=== PATIENT | female | born 1965 | race Caucasian/White ===

== ENCOUNTER 2016-10-05 07:07 | Emergency (ER) | payer OTHER ==
[2016-10-05] MEDS ORDERED: NS 0.9% 1000 ML* 1,000 ML BOLUS ONE (07:34)
[2016-10-05] MEDS ORDERED: Ondansetron INJ* 2 MG/ML VIAL IV ONE (07:35)
--- NOTE | 2016-10-05 07:39 | UC ---
Abdominal Pain Female HPI - HPI Summary HPI Summary: 51 yo female has been ill x 3 days n/v/d vertigo weakness dizziness dysguesia rare cough no aguilar - History of Current Complaint Chief Complaint: UCGeneralIllness Stated Complaint: DIZZINESS, VOMITING Time Seen by Provider: 10/05/16 07:23 Hx Obtained From: Patient Hx Last Menstrual Period: MENOPAUSE Onset/Duration: Gradual Onset, Lasting Days Timing: Constant Severity Initially: Moderate Pain Intensity: 2 Pain Scale Used: 0-10 Numeric Location: Diffuse Radiates: No Character: Colicy, Cramping Aggravating Factor(s): Food Alleviating Factor(s): Nothing Associated Signs and Symptoms: Positive: Dizzy, Decreased Appetite, Nausea, Vomiting, Diarrhea. Negative: Diaphoresis, Fever, Cough, Chest Pain, Back Pain , Constipation, Blood in Stool, Urinary Symptoms, Vaginal Bleeding, Vaginal Discharge Allergies/Adverse Reactions: Allergies Allergy/AdvReac Type Severity Reaction Status Date / Time Buspirone Allergy See Comment Verified 07/14/16 09:46 Loratadine [From Claritin] Allergy See Comment Verified 07/14/16 09:46 Penicillin G Allergy See Comment Verified 07/14/16 09:46 Sulfa Drugs Allergy See Comment Verified 07/14/16 09:46 SSRI medications Allergy GI Upset Uncoded 07/14/16 09:46 Home Medications: Home Medications Diphenhydramine-Acetaminophen [Tylenol Pm Extra Strength 500-25 mg] 10/05/16 [ History] PMH/Surg Hx/FS Hx/Imm Hx Previously Healthy: Yes Endocrine History Of: Denies: Diabetes, Thyroid Disease Cardiovascular History Of: Denies: Cardiac Disorders, Hypertension, Pacemaker/ICD, Deep Vein Thrombosis Respiratory History Of: Reports: Asthma, Bronchitis Denies: COPD, Pneumonia, Pulmonary Embolism GI/ History Of: Denies: Ulcer, Gastrointestinal Bleed, Gall Bladder Disease, Kidney Stones Neurological History Of: Denies: TIA, CVA, Dementia, Seizures, Migraine Psychological History Of: Denies: Anxiety, Depression, Bipolar Disorder, Schizophrenia Cancer History Of: Denies: Lung Cancer Other History Of: Negative For: Anticoagulant Therapy - Surgical History Surgical History: Yes Surgery Procedure, Year, and Place: CHOLECYSTECTOMY 2009. RIGHT KNEE SURGERY. D&C 01/02/2013 - Family History Known Family History: Positive: Hypertension Negative: Cardiac Disease, Diabetes - Social History Alcohol Use: Occasionally Substance Use Type: Marijuana Smoking Status (MU): Current Every Day Smoker Type: Cigarettes Amount Used/How Often: 1/2 ppd Length of Time of Smoking/Using Tobacco: 30 years Have You Smoked in the Last Year: Yes - Immunization History Most Recent Tetanus Shot: "five years ago" Review of Systems Constitutional: Fatigue Skin: Negative Eyes: Negative ENT: Negative Respiratory: Negative Cardiovascular: Negative Gastrointestinal: Vomiting, Diarrhea Genitourinary: Negative Motor: Negative Neurovascular: Negative Musculoskeletal: Negative Neurological: Negative Psychological: Negative All Other Systems Reviewed And Are Negative: Yes Physical Exam Triage Information Reviewed: Yes Appearance: Well-Appearing, No Pain Distress, Well-Nourished Vital Signs: Initial Vital Signs Temp 98.7 F 10/05/16 07:13 Pulse 127 10/05/16 07:13 Resp 18 10/05/16 07:13 BP 141/112 10/05/16 07:13 Pulse Ox 99 10/05/16 07:13 Vital Signs Reviewed: Yes Eyes: Positive: Conjunctiva Clear ENT: Positive: Hearing grossly normal, Pharynx normal, Pharyngeal erythema Neck: Positive: Supple, Nontender Respiratory: Positive: Lungs clear, Normal breath sounds, No respiratory distress, No accessory muscle use Cardiovascular: Positive: RRR, No Murmur Abdomen Description: Positive: Nontender, Soft, Bruit. Negative: CVA Tenderness (R), CVA Tenderness (L) Musculoskeletal: Positive: Strength Intact, ROM Intact Neurological: Positive: Alert Psychological Exam: Normal Skin Exam: Normal Re-Evaluation - Re-Evaluation First Eval Re-Evaluation Time: 08:56 Change: Improved Comment: vital signs better Abd Pain Female Course/Dx - Differential Dx/Diagnosis Provider Diagnoses: dehydration. dizziness of uncertain cause. dysguesia Discharge - Discharge Plan Condition: Stable Disposition: HOME Prescriptions: Ondansetron TAB* [Zofran Tab*] 4 mg PO Q6H PRN #10 tab PRN Reason: Nausea Patient Education Materials: Dizziness (ED) Referrals: Chris Dong MD [Primary Care Provider] - 2 Days Additional Instructions: blood work is pending see your MD first available appt
[2016-10-05 08:38] VITALS: BP 132/87
[2016-10-05 11:16] LABS: Hematocrit 56 % (35-47); Hemoglobin 18.9 g/dl (12.0-16.0); Mean Corpuscular HGB Conc 34 g/dl (31-36); Mean Corpuscular Hemoglobin 30 pg (27-31); Mean Corpuscular Volume 91 fL (80-97); Mean Platelet Volume 9 um3 (7.4-10.4); Red Blood Count 6.23 10^6/ul (4.0-5.4); Red Cell Distribution Width 14 % (10.5-15); White Blood Count 7.6 10^3/ul (3.5-10.8)
[2016-10-05 11:18] LABS: Add Diff/Slide Review? Slide Review Added; Comments Flag Yes
[2016-10-05 11:51] LABS: Albumin 4.3 g/dL (3.2-5.2); BUN/Creatinine Ratio 2.3 (8-20); Calcium 9.8 mg/dL (8.6-10.3); EGFR African American 90.2 (>60); EGFR Non-African American 70.1 (>60); Globulin 2.9 g/dL (2-4); Potassium 4.1 mmol/L (3.5-5.0); Total Bilirubin 0.7 mg/dL (0.2-1.0); Total Protein 7.2 g/dL (6.4-8.9)
== END 2016-10-05 09:07 | disposition home or self-care (01) ==
LOC: UCEAST 07:07
DX: R42 Dizziness and giddiness (principal); E86.0 Dehydration; R43.2 Parageusia; R53.83 Other fatigue; Z88.0 Allergy status to penicillin; Z88.2 Allergy status to sulfonamides; Z88.8 Allergy status to other drugs, medicaments and biological substances; Z90.49 Acquired absence of other specified parts of digestive tract; F12.90 Cannabis use, unspecified, uncomplicated; F17.210 Nicotine dependence, cigarettes, uncomplicated
CPT/HCPCS: 36415; 80053; 81002; 82108; 85025; 96360; 96361; 96374; 99212; G0463; J2405

== ENCOUNTER 2017-03-12 14:58 | Emergency (ER) | payer OTHER ==
--- NOTE | 2017-03-12 17:03 | UC ---
Abdominal Pain Female HPI - HPI Summary HPI Summary: LLQ pain for 1 day--loose stool but no vomiting--- - History of Current Complaint Chief Complaint: UCBackPain Stated Complaint: ABD & BACK PAIN Time Seen by Provider: 03/12/17 16:56 Hx Obtained From: Patient Hx Last Menstrual Period: MENOPAUSE ?: No Onset/Duration: Sudden Onset, Lasting Days - 1, Still Present Timing: Constant Severity Initially: Severe Severity Currently: Severe Pain Intensity: 10 Pain Scale Used: 0-10 Numeric Location: Discrete At: LLQ Radiates: Yes Radiates to: Back Character: Cramping, Sharp, Tearing Aggravating Factor(s): Nothing Alleviating Factor(s): Nothing Associated Signs and Symptoms: Positive: Diarrhea Allergies/Adverse Reactions: Allergies Allergy/AdvReac Type Severity Reaction Status Date / Time Buspirone Allergy See Comment Verified 07/14/16 09:46 Loratadine [From Claritin] Allergy See Comment Verified 07/14/16 09:46 Penicillin G Allergy See Comment Verified 07/14/16 09:46 Sulfa Drugs Allergy See Comment Verified 07/14/16 09:46 SSRI medications Allergy GI Upset Uncoded 07/14/16 09:46 Home Medications: Home Medications B-Complex Vitamins [Vitamin B Complex] 1 tab PO 03/12/17 [History] Calcium 500 mg PO 03/12/17 [History] Lactobacillus [Probiotic] 1 cap PO 03/12/17 [History] Magnesium Oxide (mg Supplement [Mag-200] 200 mg PO 03/12/17 [History] Zinc 30 mg PO 03/12/17 [History] PMH/Surg Hx/FS Hx/Imm Hx Previously Healthy: Yes Other History Of: Negative For: Anticoagulant Therapy - Surgical History Surgical History: Yes Surgery Procedure, Year, and Place: CHOLECYSTECTOMY 2009. RIGHT KNEE SURGERY. D&C 01/02/2013 - Family History Known Family History: Positive: Hypertension Negative: Cardiac Disease, Diabetes - Social History Occupation: Unemployed Lives: Alone Alcohol Use: Occasionally Substance Use Type: Marijuana Smoking Status (MU): Current Every Day Smoker Type: Cigarettes Amount Used/How Often: 1/2 ppd Length of Time of Smoking/Using Tobacco: 30 years Have You Smoked in the Last Year: Yes - Immunization History Most Recent Tetanus Shot: "five years ago" Review of Systems Constitutional: Fatigue Skin: Negative Eyes: Negative ENT: Negative Respiratory: Negative Cardiovascular: Negative Gastrointestinal: Abdominal Pain, Diarrhea Genitourinary: Negative Motor: Negative Neurovascular: Negative Musculoskeletal: Negative Neurological: Negative Psychological: Negative All Other Systems Reviewed And Are Negative: Yes Physical Exam Triage Information Reviewed: Yes Appearance: Ill-Appearing, Pain Distress, Thin Vital Signs: Initial Vital Signs Temp 99.1 F 03/12/17 15:05 Pulse 119 03/12/17 15:05 Resp 18 03/12/17 15:05 BP 99/66 03/12/17 15:05 Pulse Ox 98 03/12/17 15:05 Vital Signs Reviewed: Yes Eye Exam: Normal Eyes: Positive: Conjunctiva Clear ENT Exam: Normal ENT: Positive: Normal ENT inspection, Hearing grossly normal. Negative: Nasal congestion, Nasal drainage, Trismus, Muffled/hoarse voice Dental Exam: Normal Neck exam: Normal Neck: Positive: Supple, Nontender, No Lymphadenopathy Respiratory Exam: Normal Respiratory: Positive: Chest non-tender, Lungs clear, Normal breath sounds, No respiratory distress, No accessory muscle use Cardiovascular Exam: Normal Cardiovascular: Positive: No Murmur, Pulses Normal, Brisk Capillary Refill, Tachycardia Abdominal Exam: Normal Abdomen Description: Positive: No Organomegaly, Soft, Other: - LLQ pain. Negative: CVA Tenderness (R), CVA Tenderness (L) Bowel Sounds: Positive: Present Musculoskeletal Exam: Normal Musculoskeletal: Positive: Strength Intact, ROM Intact, No Edema Neurological Exam: Normal Neurological: Positive: Alert, Muscle Tone Normal Psychological Exam: Normal Skin Exam: Normal Diagnostics - Laboratory Diagnostic Studies Completed/Ordered: Free fluid and air in llq Abd Pain Female Course/Dx - Course Course Of Treatment: NPO, Patient refused ambulance, to [facility] - Differential Dx/Diagnosis Differential Diagnosis: Bowel Obstruction, Diverticulitis, Renal Colic Provider Diagnoses: Abd Pain, Ruptured Diverticuli - Physician Notification/Consults Discussed Care of Patient With: Sparkle Boudreaux Time Discussed With Above Provider: 18:40 Instructed by Provider To: Transfer Discharge - Discharge Plan Condition: Fair Disposition: AGAINST MEDICAL ADVICE
[2017-03-12] MEDS ORDERED: Acetaminophen TAB* 325 MG PO ONE (18:06)
--- NOTE | 2017-03-12 18:20 | RAD ---
INDICATION: Hematuria, abdominal pain. Diarrhea. History of hiatal hernia. Post cholecystectomy. COMPARISON: July 11, 2014 CT urogram. TECHNIQUE: Multidetector CT images were obtained from the lung bases to the ischial tuberosities. Evaluation of the viscera is limited without IV contrast. Multiplanar reformation. REPORT: Unremarkable visualized inferior thorax. Post cholecystectomy. Negative for biliary dilatation. Unremarkable unenhanced liver, pancreas, spleen. Negative for CT abnormality of the upper GI, small bowel, or infra cecal appendix. Moderately severe diverticulosis primarily involving the sigmoid colon with acute inflammation with mild perienteric inflammatory change and small volume of fluid along the LEFT pelvic sidewall. Potential small focus of extra enteric gas although this is not definitive and may be contained within a diverticula. Negative for hernias. Normal adrenal glands. Unremarkable unenhanced kidneys, ureters, urinary bladder, anteverted uterus, and adnexal regions. Negative for lymphadenopathy. Normal diameter abdominal aorta and iliac arteries. Physiologic distention of the IVC. Negative for suspicious osseous lesions. IMPRESSION: 1. Acute sigmoid diverticulitis without evidence for perienteric abscess. Minimal fluid along the LEFT pelvic sidewall. Potential small focus of extra enteric gas although this is not definitive and may be contained within a diverticula. 2. Negative for obstructive uropathy.
[2017-03-12 18:58] VITALS: BP 90/64
== END 2017-03-12 18:57 | disposition left against medical advice (07) ==
LOC: UCEAST 14:58
DX: K57.30 Diverticulosis of large intestine without perforation or abscess without bleeding (principal); K57.20 Diverticulitis of large intestine with perforation and abscess without bleeding; Z72.0 Tobacco use
CPT/HCPCS: 74176; 81003; 99213; A9270-GY; G0463

== ENCOUNTER 2019-01-02 09:09 | Emergency (ER) | payer OTHER ==
--- OUTSIDE RECORDS SUMMARY | 2019-01-02 09:17 | XMS REPORT | Continuity of Care Document ---
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 Urine Screen See Note 43 finding LABORATORY [phone] Urinalysis With 10/07/2014 [facility] Urine Color YELLOW Yellow Microscopic LABORATORY [phone] Urine Clarity CLEAR Clear Urine Glucose - Dipstick NEGATIVE mg/dL Negative Urine Bilirubin - Dipstick NEGATIVE Negative Urine Ketone NEGATIVE mg/dL Negative Urine Specific [place] 1.015 1.010-1.030 Urine Blood SMALL High Negative Urine PH 6.0 Low 6.5-7.5 Urine Protein - Dipstick NEGATIVE mg/dL Negative Urine Urobilinogen - Dipstick 0.2 E.U./dL 0.2-1.0 Urine Nitrite - Dipstick NEGATIVE Negative Urine Leuk Esterase NEGATIVE Negative Urine RBC 0-2 rbc/hpf 0-7 Urine WBC 0-2 wbc/hpf 0-7 Urine Epithelial Cells MODERATE NONESEEN/lpf 44 Urine Amorph Sediment VERY FEW Negative Laboratory test 10/07/2014 [facility] Urine HCG NEGATIVE Negative 45 finding LABORATORY (Qualitative) [phone] CBC W/Automated 10/07/2014 [facility]. White Blood Count 7.8 K/ uL 3.1-10.7 Diff LABORATORY [phone] Red Blood Count 5.06 M/uL 3.90-5.40 Hemoglobin 15.7 gm/dL 11.6-15.8 Hematocrit 45.6 % 36.0-46.1 Mean Cell Volume 90.1 fl 80.9-99.0 Mean Corpuscular HGB 31.0 pg 25.9-32.7 Mean Corpuscular HGB Conc 34.4 g/dL High 30.8-34.3 Platelet Count 367 K/uL High 155-360 Red Cell Distri Width SD 42.2 fl 3-47 Red Cell Distri Width %CV 13.1 % 11.7-14.4 Mean Platelet Volume 9.8 fL 8.9-12.4 Neut% 72.2 % 40.4-72.8 Lymph % 20.5 % 17.0-46.1 [place] % 6.2 % 4.3-13.2 Eo% 1.0 % 0.0-6.6 Bas% 0.1 % 0.0-1.1 Neut# 5.59 K/uL 1.0-7.0 Lymph # 1.59 K/uL Low 1.8-7.0 [place] # 0.48 K/uL 0.3-0.9 Eos # 0.08 K/uL 0.0-0.5 Baso # 0.01 K/uL 0.0-0.1 Laboratory test finding 10/07/2014 [facility]. Lipase 108 U/L 73-393 LABORATORY [phone] Comprehensive Metabolic 10/07/2014 [facility]. Glucose 78 mg/ dL 74-106 Panel LABORATORY [phone] BUN 5 mg/dL Low 7-18 Creatinine 0.7 mg/dL 0.6-1.3 Glom Filtration Rate, Estimate >60 mL/min >60 If >60 mL/min >60 46 BUN/Creat 7.1 ratio Sodium 141 mmol/L 136-145 Potassium 4.3 mmol/L 3.5-5.1 47 Chloride 105 mmol/L 98-107 Carbon Dioxide 27 mmol/L 21-32 Anion Gap 9 mEq/L 8-16 Calcium 9.3 mg/dL 8.5-10.1 Total Protein 8.0 g/dL 6.4-8.2 Albumin 3.9 g/dL 3.4-5.0 Globulin 4.1 g/dL 1.9-4.3 Alb/Glob 1.0 ratio Bilirubin,Total 0.6 mg/dL 0.2-1.0 Sgot/Ast 27 U/L 15-37 SGPT/Alt 22 U/L 12-78 Alkaline Phosphatase 123 U/L High 45-117 Laboratory 08/14/2014 [facility] TSH (Thyroid 1.87 N 0.34-5.60 48, 49 test finding [phone] Stimulating IU/mL Horm) Order 08/07/2014 [facility] wet prep <pending> Stefan vaginal prep <pending> Laboratory test finding 08/07/2014 In House Stefan negative 50 Wet Prep negative Laboratory test finding 08/07/2014 [facility] Genital Culture (SEE NOTE ) 51 [phone] Culture Urine Inhouse 06/05/2014 In House Colonies no growth Urine Micro Inhouse 06/05/2014 In House Ua WBC - Ua RBC 0-1 Ua Casts - Ua Epi many Ua Other - Ua Glucose - Ua Bilirubin - Ua Ketones - Ua Specific [place] 1.005 Ua Blood sm Ua PH 7.0 Ua Protein - Ua Urobilinogen - Ua Nitrite - Ua Leukocytes - 1 void, clear, tahir. Nurse collected a urine spec to test bc pt stated she had back pain and wanted urine checked., however pt did not wait to see provider. SL 2 Normal Range 180 to 914 Indeterminate Range 145 to 180 Deficient Range <145 3 Because ethnic data is not always readily available, this report includes an eGFR for both -Americans and non- Americans. The National Kidney Disease Education Program (NKDEP) does not endorse the use of the MDRD equation for patients that are not between the ages of 18 and 70, are , have extremes of body size, muscle mass, or nutritional status, or are non- or non-. According to the National Kidney Foundation, irrespective of diagnosis, the stage of the disease is based on the level of kidney function: Stage Description GFR(mL/min/1.73 m(2)) 1 Kidney damage with normal or decreased GFR 90 2 Kidney damage with mild decrease in GFR 60-89 3 Moderate decrease in GFR 30-59 4 Severe decrease in GFR 15-29 5 Kidney failure <15 (or dialysis) 4 BACK PAIN 5 URINE, CLEAN CATCH 6 void, clear, yellow 7 SEE RESULT BELOW Name: FREDDY ONEAL : [address]: Fernanda QUINTANILLA Acct: [id number] Unit: [id number] AGE: 52 Location: [facility] Re05/27/17 SEX: F Status: REG REF SPEC: [id number] MARCELINA: 05/27/[address] [facility] [address]: Fernanda QUINTANILLA REQ: [id number] RECD: 05/27/17 STATUS: SOUT _ ORDERED: TP IMAGE ANAL, HPV/Thin Prep COMMENTS: [id number] FINAL DIAGNOSIS Negative for Intraepithelial lesion or Malignancy A. Ectocervical/Endocervical Specimen Adequacy: Satisfactory of evaluation Transformation zone component identified Patient Information: HPV: High risk HPV RNA testing regardless of pap results. Actual Specimen Date: 05/27/17 LMP If Unknown: unknown Spec Date if unknown: 2013 ?: N Post Menopausal?: Y Hysterectomy?: N Previous Abnormal Pap Smears?:N Date Time Test Result Flag (u) Normal Range 05/27/17 1137 HPV RNA Negative Negative The high-risk HPV types detected by the assay include: 16, 18, 31, 33, 35, 39, 45, 51, 52, 56, 58, 59, 66, and 68. Signed (signature on file) ASHIA Morgan(ASCP) 05/31 0937 This Pap test was evaluated with the assistance of the [employer] MediaPrep Test Imaging System. Due to cytologic findings at the light air defense artillery crewmember microscope, comprehensive manual rescreening by a Loss Prevention Guard may be required. The Pap Smear is a screening test designed to aid in the detection of premalignant and malignant conditions of the uterine cervix. It is not a diagnostic procedure and should not be used as the sole means of detecting cervical cancer. Both false- positive and false- negative reports do occur. Depending on your risk status, a Pap smear should be obtained and evaluated every 1-3 years. END OF REPORT * ML=Testing performed at Main Lab DEPARTMENT OF PATHOLOGY, [address] [place] [address] Irving De Santiago M.D. Director [facility]EC[facility] # [id number] RUN DATE: 05/31/17 [facility] LAB LIVE PAGE 1 Patient: FREDDY ONEAL [id number] (Continued) 8 The high-risk HPV types detected by the assay include: 16, 18, 31, 33, 35, 39, 45, 51, 52, 56, 58, 59, 66, and 68. 9 void, clear, tahir 10 SENT BY [facility] LEFT SIDE LOW ABD PAIN GOING TO BACK 11 03/12/172137: NEUT% previously reported as: 78.8 H % Amended result called to: [] 03/12/17 at 213703/12/172137: LYMPH % previously reported as: 13.2 L % Amended result called to: [] 03/12/17 at 213703/12/172137: MONO % previously reported as: 7.6 % Amended result called to: [] 03/12/17 at 213703/12/172137: EO% previously reported as: 0.3 % Amended result called to: [] 03/12/17 at 213703/12/172137: BAS% previously reported as: 0.1 % Amended result called to: [] 03/12/17 at 2138 12 POSSIBLE UROGENITAL CONTAMINATION. 13 URINE, CLEAN CATCH 14 Original specimen hemolyzed, interpret with caution 15 Method: Quidel QuickVue One-Step Immunoassay 16 Note: Persistent reduction for 3 months or more in an eGFR <60 mL/min/1.73 m2 defines CKD. Patients with eGFR values >/=60 mL/min/1.73 m2 may also have CKD if evidence of persistent proteinuria is present. The original MDRD equation for estimated GFR is not valid for patients less than 18 years of age. Additional information may be found at www.kdoqi.org. 17 F41.9 18 Thyroglobulin Antibody measured by [employer] [place] [employer] 19 Performed at: - [facility] [address] [id number] Manager Style: Leonela Lucas MD, Phone: [phone] 20 CAN'T BREATHE 21 URINE, CLEAN CATCH 22 URINE, CLEAN CATCH 23 POSSIBLE UROGENITAL CONTAMINATION. 24 URINE, CLEAN CATCH 25 [id number] 26 Because ethnic data is not always readily available, this report includes an eGFR for both -Americans and non- Americans. The National Kidney Disease Education Program (NKDEP) does not endorse the use of the MDRD equation for patients that are not between the ages of 18 and 70, are , have extremes of body size, muscle mass, or nutritional status, or are non- or non-. According to the National Kidney Foundation, irrespective of diagnosis, the stage of the disease is based on the level of kidney function: Stage Description GFR(mL/min/1.73 m(2)) 1 Kidney damage with normal or decreased GFR 90 2 Kidney damage with mild decrease in GFR 60-89 3 Moderate decrease in GFR 30-59 4 Severe decrease in GFR 15-29 5 Kidney failure <15 (or dialysis) 27 REFERENCE VALUE 0-6 <60 (dialysis patient) ADDITIONAL INFORMATION This test was developed and its performance characteristics determined by [facility] in a manner consistent with CLIA requirements. This test has not been cleared or approved by the U.S. Food and Drug Administration. Test Performed by: [facility] [address] Safety Sealer: Estrada Devlin II, M.D., Ph.D. 28 FASTING 12 HOUR 29 Because ethnic data is not always readily available, this report includes an eGFR for both -Americans and non- Americans. The National Kidney Disease Education Program (NKDEP) does not endorse the use of the MDRD equation for patients that are not between the ages of 18 and 70, are , have extremes of body size, muscle mass, or nutritional status, or are non- or non-. According to the National Kidney Foundation, irrespective of diagnosis, the stage of the disease is based on the level of kidney function: Stage Description GFR(mL/min/1.73 m(2)) 1 Kidney damage with normal or decreased GFR 90 2 Kidney damage with mild decrease in GFR 60-89 3 Moderate decrease in GFR 30-59 4 Severe decrease in GFR 15-29 5 Kidney failure <15 (or dialysis) 30 Desirable <150 Borderline high 150-199 High 200-499 Very High >500 31 Desirable <200 Borderline high 200-239 High >239 32 Low <40 Desirable: 40-60 High: >60 33 Desirable: <100 mg/dL Near Optimal: 100-129 mg/dL Borderline High: 130-159 mg/dL High: 160-189 mg/dL Very High: >189 mg/dL 34 Normal Range 180 to 914 Indeterminate Range 145 to 180 Deficient Range <145 35 FASTING 12 HOUR 36 FASTING 12 HOUR 37 Acute inflammation: >10.00 38 Test Performed by: [facility] - [address] [address] Safety Sealer: Estrada Devlin II, M.D., Ph.D. 39 void, clear, gold 40 [id number]-twyuqi 41 fcze-sfzoe-jdkc tahir 42 SEE RESULT BELOW Name: FREDDY ONEAL : [address]: Ana Cristina Conteh MD Acct: [id number] Unit: [id number] AGE: 49 Location: [facility] Re03/27/15 SEX: F Status: DEP ER SPEC: [id number] MARCELINA: 03/27/15-[address] [facility] [address]: Ana Cristina Conteh MD REQ: [id number] RECD: 03/27/15-123 STATUS: WESLY DEL RIO DR: Chris Dong MD _ SOURCE: URINE SPDESC: ORDERED: Urine Culture Procedure Result Verified Site Urine Culture Final 03/29/15- 1021 ML Organism 1 NORMAL NAZIA [place] Count 25-50,000 (Moderate) CFU/ML * ML - MAIN LAB ([facility]) . END OF REPORT * ML=Testing performed at Main Lab DEPARTMENT OF PATHOLOGY, [facility] [employer] [place], [place] [address] Irving De Santiago M.D. Director [facility] # [id number] 43 10/07/14 LAB.DWM Deleted by [employer] 44 POSSIBLE UROGENITAL CONTAMINATION. 45 FIRST MORNING SPECIMENS GENERALLY CONTAIN THE HIGHEST CONCENTRATION OF HCG AND ARE RECOMMENDED FOR EARLY DETECTION OF . 46 Note: Persistent reduction for 3 months or more in an eGFR <60 mL/min/1.73 m2 defines CKD. Patients with eGFR values >/=60 mL/min/1.73 m2 may also have CKD if evidence of persistent proteinuria is present. The original MDRD equation for estimated GFR is not valid for patients less than 18 years of age. Additional information may be found at www.kdoqi.org. 47 Specimen slightly Hemolyzed, interpret with caution 48 copy result to [facility] [place]) 49 copy result to [facility] [place]) 50 pH 6.0 Whiff test (-) 51 RUN DATE: 08/09/14 [facility] LAB LIVE PAGE 1 RUN TIME: 4414 [facility] [employer] [place], [place] [address] Specimen Inquiry Name: FREDDY ONEAL : [address]: Chris Dong MD Acct: [id number] Unit: [id number] AGE: 49 Location: [facility] Re08/07/14 SEX: F Status: REG REF SPEC: [id number] MARCELINA: 08/07/14-[address]: Chris Dong MD REQ: [id number] RECD: 08/07/14 STATUS: COMP _ SOURCE: VAGINAL SPDESC: ORDERED: Genital Culture QUERIES: Medent Number [id number] Procedure Result Verified Site Genital Culture Final 08/09/14- 1515 ML Organism 1 NORMAL NAZIA Quantity 3+ END OF REPORT * ML=Testing performed at Main Lab DEPARTMENT OF PATHOLOGY, [address] [place] [address] Irving De Santiago M.D. Director [facility] # [id number] Procedures Date Code Description Status 03/12/2018 32816 Omt 7-8 Body Regions Completed 06/16/2017 15902 Destruction Of Skin Lesions Up To 14 Flat Warts/Molluscum Completed Contag Encounters Type Date Location Provider Dx Diagnosis Office Visit 09/21/2018 8:40a Main Office Fernanda Alfaro PA M79.7 Fibromyalgia G89.4 Chronic pain syndrome F41.9 Anxiety disorder, unspecified F17.210 Nicotine dependence, cigarettes, uncomplicated Office Visit 03/12/2018 10:30a Main Office Claude Stewart, M99.05 Segmental and D.O. somatic dysfunction of pelvic region M99.03 Segmental and somatic dysfunction of lumbar region M99.04 Segmental and somatic dysfunction of sacral region M99.01 Segmental and somatic dysfunction of cervical region M99.00 Segmental and somatic dysfunction of head region M99.02 Segmental and somatic dysfunction of thoracic region M99.08 Segmental and somatic dysfunction of rib cage M54.6 Pain in thoracic spine M79.7 Fibromyalgia F41.9 Anxiety disorder, unspecified Office Visit 06/30/2017 4:40p Main Office Fernanda Alfaro, F41.9 Anxiety disorder, PA unspecified G89.4 Chronic pain syndrome L91.8 Other hypertrophic disorders of the skin R11.0 Nausea R53.83 Other fatigue Office Visit 06/16/2017 10:40a Main Office Fernanda Alfaro, L91.8 Other hypertrophic PA disorders of the skin Office Visit 05/27/2017 10:05a Main Office Fernanda Alfaro, Z00.01 Encounter for PA general adult medical exam w abnormal findings M79.7 Fibromyalgia G89.4 Chronic pain syndrome F41.9 Anxiety disorder, unspecified F17.210 Nicotine dependence, cigarettes, uncomplicated K58.0 Irritable bowel syndrome with diarrhea Z12.4 Encounter for screening for malignant neoplasm of cervix Z12.11 Encounter for screening for malignant neoplasm of colon Office Visit 03/29/2017 9:45a Main Office Chris Dong, 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 w/o bleeding M79.7 Fibromyalgia G89.4 Chronic pain syndrome R07.89 Other chest pain R10.814 Left lower quadrant abdominal tenderness Z23 Encounter for immunization G47.00 Insomnia, unspecified F41.9 Anxiety disorder, unspecified Office Visit 11/05/2016 11:05a Main Office IrineoestherFernanda, F41.9 Anxiety disorder, PA unspecified G47.00 Insomnia, unspecified M79.7 Fibromyalgia Office Visit 10/14/2016 10:40a Main Office Fernanda Alfaro, J20.9 Acute bronchitis, PA unspecified F17.210 Nicotine dependence, cigarettes, uncomplicated F41.9 Anxiety disorder, unspecified M79.7 Fibromyalgia Z13.29 Encounter for screening for oth suspected endocrine disorder Office Visit 04/01/2016 1:15p Main Office Chris Dong M.D. M79.7 Fibromyalgia G89.4 Chronic pain syndrome R53.82 Chronic fatigue, unspecified G47.00 Insomnia, unspecified F41.9 Anxiety disorder, unspecified R07.89 Other chest pain Office Visit 12/24/2015 2:00p Main Office Chris Dong M.D. M79.7 Fibromyalgia G89.4 Chronic pain syndrome G47.00 Insomnia, unspecified R53.82 Chronic fatigue, unspecified F41.9 Anxiety disorder, unspecified R20.8 Other disturbances of skin sensation M54.5 Low back pain Z13.220 Encounter for screening for lipoid disorders M79.605 Pain in left leg Z00.01 Encounter for general adult medical exam w abnormal findings Office Visit 08/14/2015 1:30p Main Office Chris Dong M.D. M79.7 Fibromyalgia G89.4 Chronic pain syndrome G47.00 Insomnia, unspecified R53.82 Chronic fatigue, unspecified F41.9 Anxiety disorder, unspecified J31.0 Chronic rhinitis R11.0 Nausea N95.1 Menopausal and female climacteric states F17.210 Nicotine dependence, cigarettes, uncomplicated Z71.3 Dietary counseling and surveillance Z12.31 Encntr screen mammogram for malignant neoplasm of breast Office Visit 05/20/2015 1:20p Main Office Beckie, F32.9 Major depressive Shama, RPA-C disorder, single episode, unspecified G89.4 Chronic pain syndrome G47.00 Insomnia, unspecified Office Visit 04/03/2015 8:55a Main Office Chris Dong, 789.04 Pain Abdominal M.D. Left Lower Quadrant 724.5 Backache Unspec 729.1 Myalgia & Myositis Unspec 338.4 Chronic Pain Syndrome 780.52 Insomnia Unspecified 780.71 Chronic Fatigue Syndrome Office Visit 02/01/2015 11:00a Main Office Chris Dong, 338.4 Chronic Pain M.D. Syndrome 729.1 Myalgia & Myositis Unspec 616.10 Vaginitis & Vulvovaginitis Unspec 780.52 Insomnia Unspecified Office Visit 01/29/2015 4:00p Main Office Chris Dong, 338.4 Chronic Pain M.D. Syndrome 616.10 Vaginitis & Vulvovaginitis Unspec 780.52 Insomnia Unspecified 311 Depressive Disorder Not Elsewhere Spec Office Visit 11/21/2014 4:15p Main Office Chris Dong, 338.4 Chronic Pain M.D. Syndrome 729.1 Myalgia & Myositis Unspec 787.02 Nausea Alone 300.00 Anxiety State Unspec 780.71 Chronic Fatigue Syndrome Office Visit 10/15/2014 12:55p Main Office Chris Dong, 729.1 Myalgia & Myositis M.D. Unspec 787.02 Nausea Alone 338.4 Chronic Pain Syndrome 472.0 Rhinitis Chronic Office Visit 08/07/2014 10:30a Main Office Chris Dong, 599.72 Microscopic M.D. Hematuria 789.09 Pain Abdominal Other Spec Site 338.4 Chronic Pain Syndrome 729.1 Myalgia & Myositis Unspec 300.00 Anxiety State Unspec 616.10 Vaginitis & Vulvovaginitis Unspec 472.0 Rhinitis Chronic 780.71 Chronic Fatigue Syndrome 788.1 Dysuria Office Visit 06/29/2014 9:45a Main Office Chris Dong, 599.72 Microscopic M.D. Hematuria 789.09 Pain Abdominal Other Spec Site Office Visit 06/18/2014 12:55p Main Office Chris Dong, 780.71 Chronic Fatigue M.D. Syndrome 729.1 Myalgia & Myositis Unspec 338.4 Chronic Pain Syndrome 780.52 Insomnia Unspecified 788.1 Dysuria Office Visit 06/05/2014 9:30a Main Office Chris Dong M.D. 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 Respiratory Infections Acute Unspec Sites 338.4 Chronic Pain Syndrome 729.1 Myalgia & Myositis Unspec 627.2 Menopausal Or Female Climacteric State, Symptomatic 493.10 Asthma Intrinsic Unspecified 305.1 Tobacco Use Disorder 300.00 Anxiety State Unspec 472.0 Rhinitis Chronic Plan of Treatment 09/21/2018 - Fernanda Alfaro, PAM79.7 FibromyalgiaNew Medication:Celecoxib 100 mg - take 1 capsule by mouth once to twice daily as needed for joint/muscle painComments:Continue prn baclofen, try adding celecoxib. Briefly discussed exercise as for treatment of fibromyalgia. Pt states she will continue her "natural" treatments.G89.4 Chronic pain vmtlmplkR99.9 Anxiety disorder, unspecifiedComments:Severe anxiety with some paranoid thoughts. Pt will continue prn xanax, we discussed that it should not be used regularly. Briefly discussed other meds for anxiety but pt reported "trying everything" in the past w/o being able to tolerate them. I strongly encouarged pt to see psychiatry again, though she is very hesitant. Will need to monitor closely.F17.210 Nicotine dependence, cigarettes, uncomplicatedComments:Smoking cessation counseling <10 minutes done today. Pt not interested in quitting at this time.
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
[2019-01-02 09:21] VITALS: BP 107/60
--- NOTE | 2019-01-02 10:22 | UC ---
Back Pain HPI - HPI Summary HPI Summary: 53-year-old woman comes in with a chief complaint of back pain. Patient said back pain on and off for years. Since the beginning of this year 2018 she's been getting back pain that is in the thoracic and lumbar spine that ends up spreading to the lower lumbar and then spreading across primarily into the left lower lumbar area. Usually happens when she is bending and then the pain gradually gets worst headache gets into worse pain that goes into her left buttock. At this time she has pain primarily in the lumbar spine in the low lumbar area. She has no radiation into the buttock on the leg at this time. She also has some chronic thoracic back pain. No weakness or numbness or difficulty controlling urine or bowels. Pain is with worse with twisting turning bending. Not moving decreases the pain. She has tried some baclofen that did not help. On December 20 she had a similar episode in her primary caregiver gave her prednisone 20 mg once a day for 5 days and that helped quite a bit. - History of Current Complaint Chief Complaint: UCBackPain Stated Complaint: BACK PAIN Time Seen by Provider: 01/02/19 10:08 Hx Last Menstrual Period: MENOPAUSE Pain Intensity: 4 - Allergies/Home Medications Allergies/Adverse Reactions: Allergies Allergy/AdvReac Type Severity Reaction Status Date / Time buspirone Allergy Altered Verified 01/02/19 09:22 Mental Status loratadine Allergy Headache Verified 01/02/19 09:22 Penicillins Allergy Nausea Verified 01/02/19 09:22 Sulfa (Sulfonamide Allergy Rash Verified 01/02/19 09:22 Antibiotics) SSRI medications Allergy GI Upset Uncoded 07/14/16 09:46 Home Medications: Home Medications ALPRAZolam [Xanax] 1 mg PO SEE INSTRUCTIONS 01/02/19 [History Confirmed 01/02/19 ] PMH/Surg Hx/FS Hx/Imm Hx Previously Healthy: Yes - Fibromyalgia Psychological History: Anxiety Other History Of: Negative For: Anticoagulant Therapy - Surgical History Surgical History: Yes Surgery Procedure, Year, and Place: CHOLECYSTECTOMY 2009. RIGHT KNEE SURGERY. D&C 01/02/2013 - Family History Known Family History: Positive: Hypertension Negative: Cardiac Disease, Diabetes - Social History Alcohol Use: Occasionally Substance Use Type: Marijuana Smoking Status (MU): Current Every Day Smoker Type: Cigarettes Amount Used/How Often: 1/2 ppd Length of Time of Smoking/Using Tobacco: 30 years Have You Smoked in the Last Year: Yes - Immunization History Most Recent Tetanus Shot: "five years ago" Review of Systems All Other Systems Reviewed And Are Negative: Yes Constitutional: Positive: Negative Skin: Positive: Negative Eyes: Positive: Negative ENT: Positive: Negative Respiratory: Positive: Negative Cardiovascular: Positive: Negative Gastrointestinal: Positive: Negative Genitourinary: Positive: Negative Motor: Positive: Negative Neurovascular: Positive: Negative Musculoskeletal: Positive: Other: - see hpi Neurological: Positive: Negative Psychological: Positive: Negative Is Patient Immunocompromised?: No Physical Exam Triage Information Reviewed: Yes Appearance: Well-Appearing, No Pain Distress, Well-Nourished Vital Signs: Initial Vital Signs Temp 98.1 F 01/02/19 09:15 Pulse 109 01/02/19 09:15 Resp 20 01/02/19 09:15 BP 107/60 01/02/19 09:15 Pulse Ox 100 01/02/19 09:15 Vital Signs Reviewed: Yes Eye Exam: Normal Eyes: Positive: Conjunctiva Clear Neck: Positive: Supple Respiratory: Positive: No respiratory distress Musculoskeletal: Positive: Strength Intact, ROM Intact, Other: - Tender to palpation lower thoracic and lumbar spine midline and lower lumbar b/l laterally. Legs FROM. NL strength. No neuro deficit Neurological: Positive: Alert, Muscle Tone Normal Psychological Exam: Normal Psychological: Positive: Age Appropriate Behavior Skin Exam: Normal Back Pain Course/Dx - Course Course Of Treatment: Patient Name: FREDDY HARO Medical Record#: [id number] Ordering Physician: Estrada Cheung MD Acct.#: [id number] : 1965 Age: 53 Sex: F Location: [facility] Exam Date: 01/02/19 1017 ADM Status: DEP ER Order Information: THORACIC SPINE 2 VWS Accession Number: [id number] CPT: 60636 Indication: Back pain since August 2018. Weakness and numbness. Comparison: July 14, 2016 Technique: AP and lateral views thoracic spine. REPORT AND IMPRESSION: #. Normal alignment. Negative for fracture. Multilevel minimal thoracic spine degenerative spondylosis without significant change. Unremarkable paraspinal soft tissue contours. <Electronically signed by Estevan Wright MD in OV> 01/02/19 1055 Patient Name: FREDDY HARO Medical Record#: [id number] Ordering Physician: Estrada Cheung MD Acct.#: [id number] : 1965 Age: 53 Sex: F Location: [facility] Exam Date: 01/02/19 1017 ADM Status: DEP ER Order Information: SP LUMBARSACRAL 4+ VWS Accession Number: [id number] CPT: 72013 Indication: Back pain since August 2018. Weakness and numbness. Comparison: March 12, 2017 CT. Technique: AP, lateral, and oblique views lumbar sacral spine. Report: Alignment is anatomic. No cortical disruption or trabecular impaction to indicate a vertebral body fracture. Oblique views without evidence for spondylolysis. Multilevel degenerative spondylosis and facet joint osteoarthritis. Disc space narrowing is most prominent at L3-L4 and L4-L5 moderate in severity without significant change. Facet joint osteoarthritis is most prominent at L4-L5 and L5-S1 moderate in severity. Unremarkable soft tissue contours. Gallbladder fossa level surgical clips. IMPRESSION: #. No significant interval change in multilevel degenerative spondylosis and facet joint osteoarthritis. <Electronically signed by Estevan Wright MD in OV> 01/02/19 1050 - Differential Dx/Diagnosis Provider Diagnosis: Low back pain, Thoracic back pain Discharge - Sign-Out/Discharge Documenting (check all that apply): Patient Departure All imaging exams completed and their final reports reviewed: Yes - Discharge Plan Condition: Stable Disposition: HOME Prescriptions: predniSONE TAB* [Deltasone 20 MG TAB*] 20 mg PO DAILY #5 tab Patient Education Materials: Back Pain (ED), Lower Back Exercises (ED) Referrals: Chris Dong MD [Primary Care Provider] - [facility] [Provider Group] Additional Instructions: FOLLOW UP WITH YOUR PRIMARY CARE DOCTOR OR SPORTS MEDICINE. GET RECHECKED SOONER IF YOUR CONDITION WORSENS OR ANY QUESTIONS OR CONCERNS. - Billing Disposition and Condition Condition: STABLE Disposition: Home
== END 2019-01-02 10:52 | disposition home or self-care (01) ==
LOC: UCEAST 09:09
DX: M54.5 Low back pain (principal); M54.6 Pain in thoracic spine; M47.814 Spondylosis without myelopathy or radiculopathy, thoracic region; M47.817 Spondylosis without myelopathy or radiculopathy, lumbosacral region; F41.9 Anxiety disorder, unspecified; Z88.0 Allergy status to penicillin; Z88.2 Allergy status to sulfonamides; Z88.8 Allergy status to other drugs, medicaments and biological substances; F17.210 Nicotine dependence, cigarettes, uncomplicated
CPT/HCPCS: 72070; 72110; 99212; G0463

== ENCOUNTER 2019-10-19 08:45 | Emergency (ER) | payer OTHER ==
[2019-10-19 09:06] VITALS: BP 111/78
--- NOTE | 2019-10-19 10:35 | UC ---
Abdominal Pain Female HPI - HPI Summary HPI Summary: 54-year-old woman comes in with a chief complaint of bilateral flank pain and abdominal pain 2 months. Patient reports she's had upper abdominal pain for the last 10 years ever since her gallbladder was removed. She's had episodes of back pain in the past that sometimes are improved with prednisone. She reports that her stools are loose and that's been for years. No complaint of any burning with urination or change in bowels. She reports she has the pain all the time it will be worse with movement and laying down. No reported fevers. Patient reports the pain radiates down the left leg. No complaint of any weakness or numbness or injury. - History of Current Complaint Chief Complaint: UCGU Stated Complaint: URINARY ISSUE Time Seen by Provider: 10/19/19 09:59 Hx Last Menstrual Period: MENOPAUSE Pain Intensity: 8 Allergies/Adverse Reactions: Allergies Allergy/AdvReac Type Severity Reaction Status Date / Time buspirone Allergy Altered Verified 10/19/19 09:06 Mental Status loratadine Allergy Headache Verified 10/19/19 09:06 Penicillins Allergy Nausea Verified 10/19/19 09:06 Sulfa (Sulfonamide Allergy Rash Verified 10/19/19 09:06 Antibiotics) SSRI medications Allergy GI Upset Uncoded 10/19/19 09:06 Home Medications: Home Medications B-Complex Vitamins [Vitamin B Complex] 1 tab PO DAILY WITH MEAL 03/12/17 [ History Confirmed 10/19/19] Lactobacillus Acidophilus [Probiotic] 1 cap PO DAILY WITH MEAL 03/12/17 [ History Confirmed 10/19/19] ALPRAZolam [Xanax] 1 mg PO SEE INSTRUCTIONS 01/02/19 [History Confirmed 10/19/19 ] predniSONE 20 mg TAB [Deltasone 20 MG TAB*] 20 mg PO DAILY #5 tab 10/19/19 [Rx] PMH/Surg Hx/FS Hx/Imm Hx Previously Healthy: Yes - long history of abdominal and back pain Other History Of: Negative For: Anticoagulant Therapy - Surgical History Surgical History: Yes Surgery Procedure, Year, and Place: CHOLECYSTECTOMY 2009. RIGHT KNEE SURGERY. D&C 01/02/2013 - Family History Known Family History: Positive: Hypertension Negative: Cardiac Disease, Diabetes - Social History Alcohol Use: Occasionally Substance Use Type: Marijuana Smoking Status (MU): Current Every Day Smoker Type: Cigarettes Amount Used/How Often: 1/2 ppd Length of Time of Smoking/Using Tobacco: 30 years Have You Smoked in the Last Year: Yes - Immunization History Most Recent Tetanus Shot: "five years ago" Review of Systems All Other Systems Reviewed And Are Negative: Yes Constitutional: Positive: Other - SEE HPI Skin: Positive: Negative Eyes: Positive: Negative ENT: Positive: Negative Respiratory: Positive: Negative Cardiovascular: Positive: Negative Gastrointestinal: Positive: Abdominal Pain - SEE HPI Genitourinary: Positive: Negative Motor: Positive: Negative Neurovascular: Positive: Negative Musculoskeletal: Positive: Other: - SEE HPI Neurological/Mental Status: Positive: Negative Psychological: Positive: Negative Is Patient Immunocompromised?: No Physical Exam Triage Information Reviewed: Yes Appearance: Well-Appearing, Well-Nourished, Pain Distress - MILD WITH ABDOMINAL PALPATION Vital Signs: Initial Vital Signs Temp 97.9 F 10/19/19 09:03 Pulse 90 10/19/19 09:03 Resp 20 10/19/19 09:03 BP 111/78 10/19/19 09:03 Pulse Ox 100 10/19/19 09:03 Vital Signs Reviewed: Yes Eye Exam: Normal Eyes: Positive: Conjunctiva Clear Neck: Positive: Supple Respiratory: Positive: Lungs clear, Normal breath sounds, No respiratory distress Cardiovascular: Positive: RRR Abdomen Description: Positive: Other: - Diffuse tenderness to palpation of the abdomen. Also tender to palpation bilateral flanks. Musculoskeletal: Positive: Strength Intact, ROM Intact, Other: - No tenderness to palpation on the lumbar spinous process. Legs have full range of motion and full strength. Neurological: Positive: Alert, Muscle Tone Normal Psychological: Positive: Age Appropriate Behavior Skin Exam: Normal Abd Pain Female Course/Dx - Course Course Of Treatment: I discussed the urine results with the patient. There is hematuria. Patient's had similar symptoms for many years. The abdominal pain or flank pain is reported worse in the last 2 months. We discussed further evaluation in the emergency department. Patient declined evaluation emergency Department prefers to have a CT scan with no contrast done here. [employer] Manager Consultant: Magaly Bryant S, ([id number]) Manager Exchange: IVIS (IVIS) Report Date: 10/19/2019 11:01:00 Report Status: Final Start of Report Content Patient Name: FREDDY HARO Medical Record#: [id number] Ordering Physician: Estrada Cheung MD Acct.#: [id number] : Age: 54 Sex: F Location: [facility] Exam Date: 10/19/19 1028 ADM Status: [facility] ER Order Information: CT ABD/PEL W/O Accession Number: [id number] CPT: 12856 Indication: Bilateral flank pain, hematuria. CT of the abdomen and pelvis was performed without oral or IV contrast demonstration. Coronal and sagittal reconstructed images were obtained. The lung bases demonstrate no pleural fluid, nodules or masses. Heart is of normal size without pericardial effusion. Liver is normal in size. No focal lesions or intrahepatic ductal dilatation is noted. The patient is status post cholecystectomy. The pancreas demonstrates no mass or pancreatic duct dilatation. The kidneys demonstrate no hydronephrosis. Bilateral extrarenal pelvis is noted. No retroperitoneal lymphadenopathy. No dilated loops of bowel. The uterus and ovaries are unremarkable. Diverticulosis without definite evidence of diverticulitis. No hernias are noted. Pelvic ring is intact. IMPRESSION: No obstructive uropathy is noted although bilateral extrarenal pelvis is noted. No dilated loops of bowel are noted. Degenerative changes of both hips are noted. _ <Electronically signed by Magaly Bryant MD in OV> 10/19/19 1058 Dictated By: Magaly Bryant MD Dictated Date/Time: 10/19/19 105 Transcribed Date/Time: 105 Copy to: CC:Chris Dong MD; Estrada Cheung MD Imaging - [facility] Imaging - [facility] Urgent [place] [facility] [address] [address] ph ([phone]) ph ([phone]) ph ([phone]) ===== End of Report Content I discussed the CT results with the patient. The plan is to have her follow up with urology for the hematuria. I prescribed 5 days of prednisone as the patient said that is helped in the past which may help with this is musculoskeletal in nature.. Her primary care doctor and gastroenterology for her abdominal pain. Go the emergency department if worse or any questions or concerns. - Differential Dx/Diagnosis Provider Diagnosis: Bilateral flank pain, Abdominal pain, Hematuria Discharge ED - Sign-Out/Discharge Documenting (check all that apply): Patient Departure All imaging exams completed and their final reports reviewed: Yes - Discharge Plan Condition: Stable Disposition: HOME Prescriptions: predniSONE 20 mg TAB [Deltasone 20 MG TAB*] 20 mg PO DAILY #5 tab Patient Education Materials: Hematuria (ED), Acute Abdominal Pain (ED), Flank Pain (ED) Referrals: Chris Dong MD [Primary Care Provider] - Barber Hastings MD [Medical Doctor] - Jasbir Dietz MD [Medical Doctor] - Harjinder Pulliam DO [Doctor of Osteopathy] - Additional Instructions: FOLLOW UP WITH YOUR PRIMARY CARE DOCTOR. FOLLOW UP WITH UROLOGY FOR THE BLOOD IN YOUR URINE. FOLLOW UP WITH GASTROENTEROLOGY FOR YOUR ABDOMINAL PAIN. GO TO THE EMERGENCY DEPARTMENT IF NOT IMPROVED OR WORSE; PAIN, FEVER, YOU FEEL ILL OR ANY QUESTIONS OR CONCERNS. - Billing Disposition and Condition Condition: STABLE Disposition: Home
== END 2019-10-19 12:20 | disposition home or self-care (01) ==
LOC: UCEAST 08:45
DX: R10.10 Upper abdominal pain, unspecified (principal); R31.9 Hematuria, unspecified; F17.210 Nicotine dependence, cigarettes, uncomplicated; M54.9 Dorsalgia, unspecified; Z88.8 Allergy status to other drugs, medicaments and biological substances; Z88.0 Allergy status to penicillin; Z88.2 Allergy status to sulfonamides
CPT/HCPCS: 74176; 81003; 99211; G0463